=== PATIENT | male | born 1960 | race Caucasian/White ===

== ENCOUNTER 2024-04-10 23:09 | Emergency (ER) | payer OTHER ==
[2024-04-10] MEDS ORDERED: Ibuprofen 200 MG TAB ONE (23:29)
== END 2024-04-11 00:22 | disposition home or self-care (01) ==
LOC: NAV ERS 23:09
DX: J10.1 Influenza due to other identified influenza virus with other respiratory manifestations (principal); E11.9 Type 2 diabetes mellitus without complications; I10 Essential (primary) hypertension; E78.5 Hyperlipidemia, unspecified; Z79.84 Long term (current) use of oral hypoglycemic drugs; Z79.85 Long-term (current) use of injectable non-insulin antidiabetic drugs; Z79.899 Other long term (current) drug therapy; Z87.891 Personal history of nicotine dependence
CPT/HCPCS: 87428; 99284